=== PATIENT | female | born 2000 | race Caucasian/White ===

== ENCOUNTER 2022-04-06 23:35 | Emergency (ER) | payer SELFPAY ==
[~2022-04-06] VITALS: Ht 157.5 cm; Wt 52.2 kg
--- NOTE | 2022-04-07 00:09 | NUR ---
Patient BIB sister to ER c/o fall. Patient stated that she fell on her right side and back of the head. Patient c/o headache and back pain. Denies loss of conciousness
--- NOTE | 2022-04-07 00:11 | NUR ---
Patient's sister at bedside
--- NOTE | 2022-04-07 00:18 | NUR ---
Dr Vazquez in room for ELOY
[2022-04-07] MEDS ORDERED: METOCLOPRAMIDE HCL 10 MG/2 ML VIAL IV ONE (00:30)
[2022-04-07] MEDS ORDERED: KETOROLAC TROMETHAMINE 30 MG INJ IM ONE (00:30)
[2022-04-07] MEDS ORDERED: diphenhydrAMINE 50 MG/1 ML VIAL IM ONE (00:30)
[2022-04-07] MEDS ORDERED: METOCLOPRAMIDE HCL 10 MG/2 ML VIAL ONE (00:31)
[2022-04-07] MEDS ORDERED: KETOROLAC TROMETHAMINE 30 MG INJ ONE (00:31)
[2022-04-07] MEDS ORDERED: diphenhydrAMINE 50 MG/1 ML VIAL ONE (00:32)
--- NOTE | 2022-04-07 01:13 | NUR ---
patient taken for CT
--- NOTE | 2022-04-07 01:47 | NUR ---
Patient back from CT
[2022-04-07] MEDS ORDERED: HYDROCODONE/APAP 5-325MG TABLET ONE (02:28)
[2022-04-07] MEDS ORDERED: ONDA4TAB5 PO (02:30)
[2022-04-07] MEDS ORDERED: HYDR-4209 PO (02:30)
[2022-04-07] MEDS ORDERED: HYDROCODONE/APAP 5-325MG TABLET PO ONE (02:30)
[2022-04-07 02:36] VITALS: BP 115/67
--- NOTE | 2022-04-07 02:36 | NUR ---
Patient discharged to home in stable condition. Written and verbal after care instructions given. Patient verbalizes understanding of instructions. Stressed follow up or return to ER for worsening s/s. Patient is A/Ox4, no SOB, not in distress. patient is accompanied by her sister
== END 2022-04-07 02:36 | disposition home or self-care (01) ==
LOC: ER 04-07 00:08
DX: S00.03XA Contusion of scalp, initial encounter (principal); S30.0XXA Contusion of lower back and pelvis, initial encounter; S20.229A Contusion of unspecified back wall of thorax, initial encounter; W01.0XXA Fall on same level from slipping, tripping and stumbling without subsequent striking against object, initial encounter; Y92.511 Restaurant or cafe as the place of occurrence of the external cause; R11.0 Nausea
CPT/HCPCS: 36415; 70450; 72125; 72128; 72131; 84702; 96372; 96374; 99285; J1200; J1885; J2765